=== PATIENT | female | born 1950 | race Two or more races ===

== ENCOUNTER → 2016-08-28 | Outpatient (CLI) | payer MEDICARE, MEDICAID ==
--- NOTE | 2016-08-28 11:21 | RADRPT ---
PROCEDURE: XR left knee. CLINICAL INDICATION: Knee pain TECHNIQUE: AP weightbearing, PA weightbearing, lateral weightbearing and sunrise views are availab le for review. COMPARISON: None available FINDINGS: There is moderate narrowing of the medial tibial femoral compartment. The osseous structures are oth erwise normal in mineralization, architecture and alignment. No fractures are identified. No osseo us lesions are identified. The soft tissues are unremarkable. IMPRESSION: Moderate narrowing of the medial tibial femoral compartment (query osteoarthrosis) RPTAT: [facility] .Cal Nowak MD, MD Date Time Electronically viewed and signed by .Cal Nowak MD, MD on 08/28/2016 11:20 .B/
== END | disposition home or self-care (01) ==
LOC: HKI 08:20
PROVIDERS: ATTEND Orthopaedic Surgery
DX: M17.12 Unilateral primary osteoarthritis, left knee (principal); M25.562 Pain in left knee; Z79.82 Long term (current) use of aspirin
CPT/HCPCS: 20610; 73564; G0463; J7327